=== PATIENT | female | born 1995 | race Caucasian/White ===

== ENCOUNTER 2022-11-08 09:29 | Outpatient (REF) | payer MEDICAID, SELFPAY ==
--- NOTE | ~2022-11-08 | XR_ITS ---
EXAMINATION: XR KNEE, RIGHT CLINICAL INFORMATION: Reason for Exam PAIN IN RIGHT KNEE COMPARISON: None TECHNIQUE: 2 views of the knee FINDINGS: No acute fracture or dislocation. Joint spaces are maintained. No joint effusion. Soft tissues are unremarkable. XR/XR knee RT 2V IMPRESSION: * No acute osseous abnormality. * Joint spaces are maintained without significant degenerative change.
== END 2022-11-08 09:30 | disposition home or self-care (01) ==
LOC: HO.XRAY 09:29
PROVIDERS: PCP Internal Medicine; Visit Provider Internal Medicine
DX: M25.561 Pain in right knee (principal)
CPT/HCPCS: 73560

== ENCOUNTER 2022-12-30 13:32 | Outpatient (REF) | payer MEDICAID, SELFPAY ==
--- NOTE | ~2022-12-30 | US_ITS ---
EXAMINATION: US PELVIS CLINICAL INFORMATION: Abnormal bleeding with IUD COMPARISON: None available. TECHNIQUE: Ultrasound of the pelvis is performed using both transabdominal and transvaginal transducers along with Doppler. Transvaginal imaging is performed due to inadequate visualization transabdominally. FINDINGS: UTERUS: The uterus is retroverted, retroflexed and measures 7.8 x 4.4 x 5.2 cm. The double wall endometrial thickness is 0.8 cm. There is an intrauterine IUD in good position. The uterus is smooth in contour and has normal myometrial echogenicity. No visible fibroid. There are small nabothian cysts seen in the ovary. Small amount of free fluid in the cervix is normal. ADNEXA: Both ovaries are visualized. There is normal color flow to the adnexa. There is no ovarian torsion. There is no pelvic ascites or fluid collection. Right ovary measures 2.8 x 2.0 x 2.3 cm and volume 6.7 mL. It appears unremarkable. Left ovary measures 2.9 x 1.8 x 2.4 cm and volume 6.7 mL. There is a dominant follicle measuring 1.4 x 1.3 x 1.2 cm. Small amount of free fluid seen at the fundus and around the left ovary. US/US pelvic and transvaginal IMPRESSION: 1. Unremarkable uterus. 2. Small nabothian cysts in the cervix with minimal free fluid in the endocervical canal. 3. Dominant follicle left ovary measuring 1.4 cm. 4. Minimal free fluid around the left ovary and uterine fundus.
== END 2022-12-30 13:33 | disposition home or self-care (01) ==
LOC: HO.US 13:32
PROVIDERS: Visit Provider Advanced Practice Midwife
DX: N93.9 Abnormal uterine and vaginal bleeding, unspecified (principal)
CPT/HCPCS: 76830; 76856

== ENCOUNTER 2023-01-30 21:57 | Emergency (ER) | payer MEDICAID, SELFPAY ==
[2023-01-30 22:37] VITALS: BP 127/78; PULSE 69; RESP 16; TEMP 36.2; O2SAT 100; BMI 37.7
[2023-01-30] MEDS: diphenhydrAMINE HCL 25 MG CAPSULE 50 MG PO (22:47)
[2023-01-31 00:27] VITALS: BP 130/83; PULSE 69; RESP 18; TEMP 36.6; O2SAT 100
--- NOTE | 2023-01-31 00:32 | ED_ITS ---
HPI - Allergic Reaction General Chief complaint: Allergic Reaction Stated complaint: Allergic reaction? rash on face Time Seen by Provider: 01/31/23 00:15 Source: patient Mode of arrival: ambulatory Limitations: no limitations History of Present Illness HPI narrative: Patient comes to the emergency room complaining of hives. Patient states that approximately 5 hours ago, patient ate [place] food. Patient states that shortly after she started getting hives in the face and itching all over the body. Denies chest pain, no difficulty breathing, no throat itching. Patient not known to have any allergies. Related Data Previous Rx's Medication Instructions Recorded famotidine 20 mg tablet (Pepcid) 20 mg PO DAILY #2 tabs 01/31/23 prednisone 50 mg tablet 50 mg PO DAILY #2 tabs 01/31/23 Allergies Allergy/AdvReac Type Severity Reaction Status Date / Time No Known Allergies Allergy Unverified 05/11/20 19:29 [No Known Allergies*] Review of Systems Review of Systems: Constitutional : No Weight loss, No Fever, No Chills, No Night Sweats, No Fatigue, No Malaise ENT/Mouth : No Hearing loss, No Ear Pain, No Nasal Congestion, No Sinus Pain, No Hoarseness, No sore throat, No Rhinorrhea, No Swallowing Difficulty Eyes: No Eye Pain, No Swelling, No Redness, No Foreign Body, No Discharge, No Vision Changes Cardiovascular : No Chest Pain, No SOB, No Dyspnea on Exertion, No Orthopnea, No Edema, No Palpitations Respiratory : No Cough, No Sputum, No Wheezing, No Smoke Exposure, No Dyspnea Gastrointestinal : No Nausea, No Vomiting, No Diarrhea, No Constipation, No abdominal Pain, No Hematochezia, No Melena Genitourinary : no irregular bleeding, No Dysuria, No Urinary Frequency, No Hematuria, No Urinary Incontinence, No Urgency, No Flank Pain, No Urinary Flow Changes, No Hesitancy Musculoskeletal : No joint pain, No Myalgias, No Joint Swelling Skin : Complaining of hives and itchiness Neuro : No Weakness, No Numbness, No Paresthesias, No Loss of Consciousness, No Dizziness, No Headache Psych : No Anxiety/Panic, No Depression, No SI/HI/AH/VH, No Social Issues, Heme/Lymph: No Bruising, No Bleeding,No Lymphadenopathy Endocrine : No Polyuria, No Polydipsia, No Temperature Intolerance PMFSH Social History Social History Alcohol intake: never Smoked in Last 30 Days: No Use of substances other than those prescribed or required for medical reasons: No Advance Directives: No Advance Directives Information Provided: Yes Patient : No Physical Exam ED Vital Signs: Vital Signs - 24 hr 01/30/23 22:37 01/31/23 00:27 Temperature 97.1 F 97.9 F Pulse Rate 69 69 Respiratory Rate 16 18 Blood Pressure 127/78 130/83 Pulse Oximetry 100 100 Oxygen Delivery Method Room Air Room Air BMI result Body Mass Index 37.7 Const Other: Appearance: Alert. Oriented X3. No acute distress. Eyes: Pupils equal, round and reactive to light. ENT: Pharynx normal. Neck: Normal inspection. Neck supple. No lymph nodes noted. No crepitus CVS: Normal heart rate and rhythm. Pulses normal. Normal S1 and S2 Respiratory: No respiratory distress. Breath sounds normal. No Wheezing. No rales Abdomen: Soft and nontender. No rigidity. No distention. Skin: Petechial rash in face, no rash in the rest of a body Extremities: No lower extremity edema. No Lacerations. No Rash Neuro: Oriented X 3. No motor deficit. No sensory deficit. Moving all extremities. No slurred speech. CN 2 through 12 grossly intact Psych: calm, cooperative, normal affect Course Course Course Narrative: Patient already received p.o. Benadryl -patient getting IV fluids, Solu-Medrol, Pepcid Medications Administered Discontinued Medications Generic Name Dose Route Start Last Admin Trade Name Freq PRN Reason Stop Dose Admin Diphenhydramine HCl 50 mg 01/30/23 22:43 01/30/23 22:47 Diphenhydramine Hcl 25 Mg Capsule PO 01/30/23 22:44 50 mg ONCE ONE Administration Famotidine 20 mg 01/31/23 00:31 01/31/23 00:56 Famotidine/Pf 20 Mg/2 Ml Vial IVPUSH 01/31/23 00:32 20 mg ONCE ONE Administration Sodium Chloride 1,000 mls @ 999 mls/hr 01/31/23 00:31 01/31/23 02:09 Ns IVCONT 01/31/23 01:31 Infused .Q1H1M ONE Infusion Methylprednisolone Sodium Succinate 125 mg 01/31/23 00:31 01/31/23 00:56 Methylprednisolone Sod Succ 125 Mg/2 Ml Vial IVPUSH 01/31/23 00:32 125 mg ONCE ONE Administration Medical Decision Making Medical Decision Making MDM Narrative: -patient's has nearly resolved, no more itchiness. Patient ready for discharge -no angioedema, on discharge vital stable, 100% on room air, pulse 69, blood pressure 130/83 Discharge Plan Discharge Clinical Impression: Allergic reaction Patient Disposition: Home, Self-Care Instructions: General Allergic Reaction (ED) Additional Instructions: Please follow-up with your primary care physician tomorrow. If you have any worsening or new symptoms, please return to the emergency room or call 911 Prescriptions: New prednisone 50 mg tablet 50 mg PO DAILY Qty: 2 0RF famotidine [Pepcid] 20 mg tablet 20 mg PO DAILY Qty: 2 0RF
[2023-01-31] MEDS: 0.9 % Sodium Chloride 1,000 ML 999 ML IVCONT (00:45)
[2023-01-31] MEDS: Famotidine/PF 20 MG/2 ML VIAL IVPUSH (00:56)
[2023-01-31] MEDS: methylPREDNISolone Sod Succ 125 MG/2 ML VIAL IVPUSH (00:56)
--- NOTE | 2023-01-31 02:10 | PC.NURSE ---
patient in bed with eyes closed patient showing no distress at this time patient will continue to be monitored for safety
--- NOTE | 2023-01-31 02:24 | PC.NURSE ---
patient tolerated all fluids with no issues patient is stable and resting with no issues patient will continue to be monitored for safety
--- NOTE | 2023-01-31 03:10 | PC.NURSE ---
patient in the process of being discharged patient vitals are stable at this time patient have no complaints of pain at this time
== END 2023-01-31 03:18 | disposition home or self-care (01) ==
PROVIDERS: Emergency Provider Emergency Medicine
DX: L50.0 Allergic urticaria (principal)
CPT/HCPCS: 96361; 96374; 96375; 99284; J2930

== ENCOUNTER 2023-07-07 18:37 | Outpatient (REF) | payer MEDICAID, SELFPAY ==
[2023-07-07 19:21] LABS: Influenza A PCR NEGATIVE (Negative); Influenza B PCR NEGATIVE (Negative); Resp Syncy Virus RNA Qual PCR NEGATIVE (Negative); SARS COV2 PCR INHOUSE NEGATIVE (Negative)
== END 2023-07-07 18:38 | disposition home or self-care (01) ==
LOC: HO.HHCLNP 18:37
PROVIDERS: Visit Provider Emergency Medicine
DX: R68.89 Other general symptoms and signs (principal); Z11.52 Encounter for screening for COVID-19
CPT/HCPCS: 0241U; 87070

== ENCOUNTER 2023-09-12 10:44 | Outpatient (REF) | payer MEDICAID, SELFPAY ==
[2023-09-12 15:12] LABS: Cholesterol 127 mg/dL (<200); HDL Cholesterol 42 mg/dL (>40); LDL Cholesterol Calculated 73 mg/dL (<100); Triglycerides 64 mg/dL (<150)
== END 2023-09-12 10:45 | disposition home or self-care (01) ==
LOC: HO.CHCLDS 10:44
PROVIDERS: Visit Provider Registered Nurse
DX: Z00.00 Encounter for general adult medical examination without abnormal findings (principal)
CPT/HCPCS: 36415; 80061

== ENCOUNTER 2023-12-26 07:06 | Outpatient (REF) | payer MEDICAID, SELFPAY ==
--- NOTE | ~2023-12-26 | XR_ITS ---
EXAMINATION: XR HAND, LEFT CLINICAL INFORMATION: Pain in left hand COMPARISON: None available. TECHNIQUE: PA, lateral, and oblique views of the left hand. FINDINGS: The bones are intact. No fracture. Positive ulnar variance. Joint spaces are maintained. No erosions or soft tissue calcifications. XR/XR hand LT min 3V IMPRESSION: 1. No acute bony abnormality. 2. Positive ulnar variance.
== END 2023-12-26 07:07 | disposition home or self-care (01) ==
LOC: HO.HOSX 07:06
PROVIDERS: Visit Provider Physician Assistant
DX: M67.432 Ganglion, left wrist (principal)
CPT/HCPCS: 73130; 99212

== ENCOUNTER 2023-12-26 11:10 | Outpatient (AMB) | payer MEDICAID, SELFPAY ==
--- NOTE | 2023-12-26 11:46 | MHC.OFFVIS ---
Intake Visit Reasons: N/P left hand cyst Intake Note: Sunny is a 28 year old Right hand dominant female with a bump in her Left wrist. She states she has pain when it was bigger but it has gotten smaller. She states she noticed in February of last year. She denies numbness and tingling. Staff Auditor Name: [id number] Allergies No Known Allergies [No Known Allergies*] Allergy (Verified 12/26/23 11:49) HPI HPI N/P left hand cyst: Details: 28-year-old right hand dominant female who presents to the office today with an safety and health consultant for evaluation of left hand. She reports she gets a lump on her wrist that comes and goes which she first noticed on February 2023. She states she has pain when the lump gets bigger however the lump is currently smaller. She denies any pain, numbness or tingling today. [facility] Social History (Updated 12/26/23 @ 11:50 by Margo Sun CMA) Alcohol intake: never Patient Tobacco Use Status: Never used Tobacco Current occupation: clothing store, Right hand dominant Review of Systems Const All systems reviewed & are unremarkable except as noted in HPI and below Physical Exam Const General: cooperative, healthy appearing, comfortable, no acute distress, well developed and alert Orientation/consciousness: patient oriented x3 HEENT Head: Yes normal to inspection, Yes normocephalic and Yes atraumatic Eyes General: appearance normal, both eyes and all related structures Resp Effort & Inspection: normal respiratory effort and able to speak in complete sentences Cardio Rate: regular rate Peripheral pulses: Peripheral pulses 2+ throughout GI Palpation (GI): Soft to palpation Skin Lesions: no lesions Rashes: no rashes Neuro General: patient oriented x3 Extrem Other: Left wrist: Skin intact. No palpable cyst at this time and no pain. NVI. Assessment & Plan Assessment & Plan (1) Ganglion cyst of dorsum of left wrist: Code(s): M67.432 - Ganglion, left wrist Category: Medical Plan In the absence of any cyst on exam today or any discomfort she will resume activities as tolerated. If she redevelops the cyst or any concerns she will contact the office, otherwise as needed. Orders: Orders XR hand LT min 3V 12/26/23 M79.642 - Pain in left hand Medications: Discontinued prednisone Discontinued Reason: Order 50 mg PO DAILY 2 tabs 0RF famotidine Discontinued Reason: Patient no longer taking 20 mg PO DAILY 2 tabs 0RF Patient Instructions: Scribed for Brittany Chan PA-C, by Patrice Newell medical records custodian, on 12/26/2023 at 11:15 AM EST. Brittany Hurtado PA-C, have personally reviewed and agree with the information entered by the scribe. Coding Level of Care Code New Pt Level 3 (48885) Diagnoses Ganglion cyst of dorsum of left wrist M67.432
== END 2023-12-26 12:11 | disposition home or self-care (01) ==
PROVIDERS: Visit Provider Physician Assistant
DX: M67.432 Ganglion, left wrist (principal)
CPT/HCPCS: 99204

== ENCOUNTER 2024-08-11 13:10 | Outpatient (REF) | payer MEDICAID, SELFPAY | END 2024-08-11 13:11 | disposition home or self-care (01) | LOC: HO.HHCLNP 13:10 | PROVIDERS: Visit Provider Emergency Medicine | DX: R10.13 Epigastric pain (principal) | CPT/HCPCS: 87338 ==